=== PATIENT | male | born 1940 | race Two or more races ===

== ENCOUNTER 2020-11-30 14:42 | Emergency (ER) | payer MEDICAID ==
[~2020-11-30] VITALS: Ht 162.6 cm; Wt 72.6 kg
[2020-11-30 15:21] VITALS: BP 118/79
== END 2020-11-30 16:44 | disposition home or self-care (01) ==
LOC: ER 14:42
DX: M17.12 Unilateral primary osteoarthritis, left knee (principal)
CPT/HCPCS: 73562